=== PATIENT | male | born 1995 | race Caucasian/White ===

== ENCOUNTER 2016-08-10 09:49 | Emergency (ER) | payer OTHER ==
[~2016-08-10] VITALS: Ht 175.3 cm; Wt 140.9 kg
[~2016-08-10 09:49] MED LIST: ADVAIR 250/28 DISKU1 IH; ALBUTEROL0.83 MG/ML IH; AMOXICILLIN 50500 MG PO; FLEXERIL 1010 MG/TAB PO; LORTAB 5/500 501 TAB PO; MEDROL 4MG DOSPA4 MG PO; NAPROSYN500 MG PO; NO HOME MEDICATIONS; NORCO 325 MG-51 TAB PO; PERCOCET 325 MG1 TA2 PO; PREDNISONE20 MG PO; PROVENTIL0.09 MG/A1 IH; RT ADVAIR 128 DISKUS IH; RT ADVAIR 228 DISKUS IH; SINGULAIR10 MG PO; ULTRAM 50MG TAB50 MG PO; ULTRAM50 MG PO
[2016-08-10 09:53] VITALS: BP 147/83; PULSE 81; TEMP 97.8
[2016-08-10] MEDS ORDERED: AMOXICILLIN 50500 MG PO (10:14)
== END 2016-08-10 10:31 | disposition home or self-care (01) ==
LOC: COL.ER 09:49
DX: K08.89 Other specified disorders of teeth and supporting structures (principal); F17.210 Nicotine dependence, cigarettes, uncomplicated

== ENCOUNTER 2016-10-10 14:38 | Emergency (ER) | payer OTHER ==
[~2016-10-10] VITALS: Ht 175.3 cm; Wt 140.9 kg
[2016-10-10 14:49] VITALS: BP 140/76; TEMP 97.9
[2016-10-10] MEDS ORDERED: PROAIR HFA0.09 MG/AC IH (14:52)
[2016-10-10] MEDS ORDERED: NORCO 325 MG-51 TAB PO (16:45)
[2016-10-10 17:14] VITALS: PULSE 72
== END 2016-10-10 17:15 | disposition home or self-care (01) ==
LOC: COL.ER 14:38
DX: S29.012A Strain of muscle and tendon of back wall of thorax, initial encounter (principal); M62.830 Muscle spasm of back; X50.0XXA Overexertion from strenuous movement or load, initial encounter
CPT/HCPCS: J1885

== ENCOUNTER 2016-10-16 09:01 | Emergency (ER) | payer OTHER ==
[~2016-10-16] VITALS: Ht 175.3 cm; Wt 140.9 kg
[~2016-10-16 09:01] MED LIST changes: +PROAIR HFA0.09 MG/AC IH
[2016-10-16 09:05] VITALS: BP 157/83; PULSE 77; TEMP 97.4
[2016-10-16] MEDS ORDERED: PREDNISONE20 MG PO (09:28)
== END 2016-10-16 09:43 | disposition home or self-care (01) ==
LOC: COL.ER 09:01
DX: S46.912A Strain of unspecified muscle, fascia and tendon at shoulder and upper arm level, left arm, initial encounter (principal); X50.0XXA Overexertion from strenuous movement or load, initial encounter
CPT/HCPCS: J7512

== ENCOUNTER 2016-11-05 13:16 | Emergency (ER) | payer OTHER ==
[~2016-11-05] VITALS: Ht 175.3 cm; Wt 140.9 kg
[2016-11-05 13:20] VITALS: BP 150/86; TEMP 98.2
[2016-11-05] MEDS ORDERED: NORCO 325 MG-51 TAB PO (14:58)
[2016-11-05 15:38] VITALS: PULSE 79
== END 2016-11-05 15:20 | disposition home or self-care (01) ==
LOC: COL.ER 13:16
DX: M79.641 Pain in right hand (principal); X50.1XXA Overexertion from prolonged static or awkward postures, initial encounter; W22.8XXA Striking against or struck by other objects, initial encounter; Y92.513 Shop (commercial) as the place of occurrence of the external cause

== ENCOUNTER 2017-02-13 19:30 | Emergency (ER) | payer OTHER ==
[~2017-02-13] VITALS: Ht 175.3 cm; Wt 143.2 kg
[2017-02-13 19:32] VITALS: TEMP 98
[2017-02-13] MEDS ORDERED: ULTRAM 50MG TAB50 MG PO (20:27)
[2017-02-13 20:40] VITALS: BP 148/96; PULSE 106
== END 2017-02-13 20:42 | disposition home or self-care (01) ==
LOC: COL.ER 19:30
DX: G89.29 Other chronic pain (principal); M25.562 Pain in left knee; J45.909 Unspecified asthma, uncomplicated; F17.210 Nicotine dependence, cigarettes, uncomplicated

== ENCOUNTER 2017-04-10 15:58 | Emergency (ER) | payer OTHER ==
[~2017-04-10] VITALS: Ht 175.3 cm; Wt 140.9 kg
[2017-04-10 16:00] VITALS: BP 165/73; TEMP 97
[2017-04-10 17:51] LABS: PH 6 (5-8); SQUAMOUS EPITHELIAL 0-2 /hpf; URINE APPEARANCE Clear; URINE BACTERIA None Seen /hpf; URINE BILIRUBIN Negative (NEGATIVE); URINE BLOOD 2+ (NEGATIVE); URINE COLOR Yellow; URINE GLUCOSE Negative (NEGATIVE); URINE KETONE Negative (NEGATIVE); URINE UROBILINOGEN Negative (NEGATIVE); URINE WBC 0-2 /hpf
[2017-04-10] MEDS ORDERED: ULTRAM 50MG TAB50 MG PO (18:17)
[2017-04-10 18:29] VITALS: PULSE 80
== END 2017-04-10 18:29 | disposition home or self-care (01) ==
LOC: COL.ER 15:58
PROVIDERS: Physician Assistant
DX: S20.212A Contusion of left front wall of thorax, initial encounter (principal); V86.59XA Driver of other special all-terrain or other off-road motor vehicle injured in nontraffic accident, initial encounter; Y92.009 Unspecified place in unspecified non-institutional (private) residence as the place of occurrence of the external cause

== ENCOUNTER 2017-04-27 07:46 | Emergency (ER) | payer OTHER ==
[~2017-04-27] VITALS: Ht 175.3 cm; Wt 140.9 kg
[2017-04-27 07:48] VITALS: BP 156/86; TEMP 97.9
[2017-04-27 08:33] VITALS: PULSE 84
== END 2017-04-27 08:34 | disposition home or self-care (01) ==
LOC: COL.ER 07:46
DX: S46.912A Strain of unspecified muscle, fascia and tendon at shoulder and upper arm level, left arm, initial encounter (principal); J45.909 Unspecified asthma, uncomplicated; W22.8XXA Striking against or struck by other objects, initial encounter; Y92.008 Other place in unspecified non-institutional (private) residence as the place of occurrence of the external cause

== ENCOUNTER 2017-12-05 15:29 | Emergency (ER) | payer SELFPAY ==
[~2017-12-05] VITALS: Ht 175.3 cm; Wt 140.9 kg
[2017-12-05 15:30] VITALS: PULSE 85; TEMP 97.9
[2017-12-05 16:01] LABS: BASO % 0.3 % (0.0-2.0); EOS # 0.1 (0.0-0.7); EOS % 1.6 % (0-4.0); GRAN # 5.7 (1.4-6.5); GRAN % 64.6 % (42.2-75.2); HEMATOCRIT 44.6 % (42.0-52.0); HEMOGLOBIN 15.4 g/dl (13.5-18.0); LYMPH # 2.2 (1.2-3.4); LYMPH % 25.2 % (20.0-51.0); MEAN CELL VOLUME 89 fl (80.0-100.0); MEAN CORPUSCULAR HEMOGLOBIN 31 pg (27.0-31.0); MEAN CORPUSCULAR HGB CONC 35 g/dl (33.0-37.0); MEAN PLATELET VOLUME 9.4 fl (7.4-10.4); MONO # 0.7 (0.1-0.6); MONO % 8.1 % (1.7-9.3); PLATELET COUNT 271 K/mm3 (130-400); RED BLOOD COUNT 5.03 M/mm3 (4.20-5.60); REDCELL DISTRIBUTION WIDTH-CV 12.4 % (11.5-14.5)
[2017-12-05 16:46] LABS: ALBUMIN 4.5 gm/dL (3.5-5.0); C-REACTIVE PROTEIN 0.8 mg/dL (0.0-0.9); CALCIUM 9.9 mg/dL (8.4-10.2); CREATININE, serum 0.72 mg/dL (0.66-1.25); POTASSIUM 3.2 mmol/L (3.4-5.0); TOTAL PROTEIN 8.7 gm/dL (6.4-8.2)
[2017-12-05 16:58] LABS: COLLECTION METHOD CLEAN CATCH
[2017-12-05 16:59] LABS: PROLACTIN 16.3 ng/mL (3.7-17.9)
[2017-12-05 17:08] LABS: MUCOUS Present /lpf; PH 6 (5-8); SQUAMOUS EPITHELIAL None Seen /hpf; URINE APPEARANCE Clear; URINE BACTERIA None Seen /hpf; URINE BILIRUBIN Negative (NEGATIVE); URINE BLOOD Negative (NEGATIVE); URINE COLOR Yellow; URINE GLUCOSE Negative (NEGATIVE); URINE KETONE Trace (NEGATIVE); URINE LEUKOCYTE ESTERASE Negative (NEGATIVE); URINE NITRATE Negative (NEGATIVE); URINE PROTEIN(semi-quant) Negative (NEGATIVE); URINE RBC None Seen /hpf; URINE UROBILINOGEN Negative (NEGATIVE)
[2017-12-05 17:27] VITALS: BP 128/78
== END 2017-12-05 17:27 | disposition home or self-care (01) ==
LOC: COL.ER 15:29
PROVIDERS: Family Medicine
DX: E86.0 Dehydration (principal); R55 Syncope and collapse; R94.5 Abnormal results of liver function studies; J45.909 Unspecified asthma, uncomplicated
CPT/HCPCS: J7030

== ENCOUNTER 2018-03-03 22:53 | Emergency (ER) | payer SELFPAY ==
[~2018-03-03] VITALS: Ht 175.3 cm; Wt 140.9 kg
[2018-03-03 22:56] VITALS: BP 163/67; TEMP 98
[2018-03-03] MEDS ORDERED: NORCO 325 MG-51 TAB PO (23:58)
[2018-03-04 00:10] VITALS: PULSE 80
== END 2018-03-04 00:10 | disposition home or self-care (01) ==
LOC: COL.ER 22:53
DX: S39.012A Strain of muscle, fascia and tendon of lower back, initial encounter (principal); J45.909 Unspecified asthma, uncomplicated; X50.0XXA Overexertion from strenuous movement or load, initial encounter
CPT/HCPCS: J1885; J2360

== ENCOUNTER 2018-03-27 23:07 | Emergency (ER) | payer SELFPAY ==
[~2018-03-27] VITALS: Ht 175.3 cm; Wt 143.2 kg
[2018-03-27 23:08] VITALS: TEMP 98.9
[2018-03-27 23:39] LABS: BASO % 0.3 % (0.0-2.0); EOS # 0.1 (0.0-0.7); EOS % 0.7 % (0-4.0); GRAN # 7.3 (1.4-6.5); GRAN % 73.3 % (42.2-75.2); HEMOGLOBIN 14.7 g/dl (13.5-18.0); LYMPH # 1.9 (1.2-3.4); LYMPH % 18.9 % (20.0-51.0); MEAN CELL VOLUME 87 fl (80.0-100.0); MEAN CORPUSCULAR HEMOGLOBIN 30 pg (27.0-31.0); MEAN CORPUSCULAR HGB CONC 34 g/dl (33.0-37.0); MEAN PLATELET VOLUME 9.6 fl (7.4-10.4); MONO # 0.7 (0.1-0.6); MONO % 6.6 % (1.7-9.3); PLATELET COUNT 285 K/mm3 (130-400); RED BLOOD COUNT 4.92 M/mm3 (4.20-5.60); REDCELL DISTRIBUTION WIDTH-CV 12.5 % (11.5-14.5)
[2018-03-27 23:49] LABS: ALBUMIN 4.4 gm/dL (3.5-5.0); BILIRUBIN,TOTAL 0.6 mg/dL (0.0-1.0); CALCIUM 9.6 mg/dL (8.4-10.2); CREATININE, serum 0.65 mg/dL (0.66-1.25); POTASSIUM 3.3 mmol/L (3.4-5.0)
[2018-03-27 23:55] VITALS: BP 122/108
[2018-03-28 00:05] LABS: PROLACTIN 17.6 ng/mL (3.7-17.9)
[2018-03-28 00:34] VITALS: PULSE 78
== END 2018-03-28 00:42 | disposition home or self-care (01) ==
LOC: COL.ER 23:07
PROVIDERS: Emergency Medicine
DX: R56.9 Unspecified convulsions (principal); E87.6 Hypokalemia; F10.129 Alcohol abuse with intoxication, unspecified

== ENCOUNTER 2018-04-17 13:02 | Emergency (ER) | payer SELFPAY ==
[~2018-04-17] VITALS: Ht 175.3 cm; Wt 140.9 kg
[2018-04-17 13:06] VITALS: BP 142/84; TEMP 98.1
[2018-04-17] MEDS ORDERED: PREDNISONE20 MG PO (14:25)
[2018-04-17] MEDS ORDERED: IPRATROPIUM BROM3 M1 IH (14:26)
[2018-04-17] MEDS ORDERED: PROAIR HFA0.09 MG/AC IH (14:26)
[2018-04-17 15:39] VITALS: PULSE 75
== END 2018-04-17 15:39 | disposition home or self-care (01) ==
LOC: COL.ER 13:02
DX: J45.901 Unspecified asthma with (acute) exacerbation (principal); F17.210 Nicotine dependence, cigarettes, uncomplicated

== ENCOUNTER 2018-05-06 02:03 | Emergency (ER) | payer SELFPAY ==
[~2018-05-06] VITALS: Ht 175.3 cm; Wt 140.9 kg
[~2018-05-06 02:03] MED LIST changes: +IPRATROPIUM BROM3 M1 IH
[2018-05-06 02:05] VITALS: BP 138/89; PULSE 71; TEMP 97.8
[2018-05-06] MEDS ORDERED: FLEXERIL 1010 MG/TAB PO (02:36)
== END 2018-05-06 02:50 | disposition home or self-care (01) ==
LOC: COL.ER 02:03
DX: G89.29 Other chronic pain (principal); M54.9 Dorsalgia, unspecified; F17.210 Nicotine dependence, cigarettes, uncomplicated
CPT/HCPCS: J1885

== ENCOUNTER 2018-06-02 13:45 | Emergency (ER) | payer SELFPAY ==
[~2018-06-02] VITALS: Ht 175.3 cm; Wt 140.9 kg
[2018-06-02 14:07] VITALS: TEMP 98
[2018-06-02] MEDS ORDERED: FLEXERIL 1010 MG/TAB PO (14:27)
[2018-06-02] MEDS ORDERED: LIDODERM 5% PATC1 EA TP (14:27)
[2018-06-02] MEDS ORDERED: NORCO 325 MG-51 TAB PO (14:27)
[2018-06-02 14:34] VITALS: BP 138/82; PULSE 74
== END 2018-06-02 14:36 | disposition home or self-care (01) ==
LOC: COL.ER 13:45
DX: S39.012A Strain of muscle, fascia and tendon of lower back, initial encounter (principal); J45.909 Unspecified asthma, uncomplicated; X50.0XXA Overexertion from strenuous movement or load, initial encounter

== ENCOUNTER 2018-06-14 03:56 | Emergency (ER) | payer SELFPAY ==
[~2018-06-14] VITALS: Ht 175.3 cm; Wt 140.9 kg
[~2018-06-14 03:56] MED LIST changes: +LIDODERM 5% PATC1 EA TP
[2018-06-14 04:08] VITALS: TEMP 97.9
[2018-06-14] MEDS ORDERED: FLEXERIL 1010 MG/TAB PO (04:31)
[2018-06-14 04:50] VITALS: BP 132/80; PULSE 78
== END 2018-06-14 04:50 | disposition home or self-care (01) ==
LOC: COL.ER 03:56
DX: G89.29 Other chronic pain (principal); M54.6 Pain in thoracic spine; X50.0XXA Overexertion from strenuous movement or load, initial encounter

== ENCOUNTER 2020-04-18 12:50 | Emergency (ER) | payer SELFPAY ==
[~2020-04-18] VITALS: Ht 175.3 cm; Wt 154.5 kg
[2020-04-18 12:59] VITALS: BP 156/75; TEMP 98.1
[2020-04-18] MEDS ORDERED: PERCOCET 325 MG1 TA2 PO (14:32)
[2020-04-18 14:46] VITALS: PULSE 75
== END 2020-04-18 14:46 | disposition home or self-care (01) ==
LOC: COL.ER 12:50
DX: S40.011A Contusion of right shoulder, initial encounter (principal); M25.551 Pain in right hip; E66.9 Obesity, unspecified; F17.210 Nicotine dependence, cigarettes, uncomplicated; Z68.43 Body mass index [BMI] 50.0-59.9, adult; Z88.6 Allergy status to analgesic agent; W11.XXXA Fall on and from ladder, initial encounter
CPT/HCPCS: J3010